=== PATIENT | female | born 1960 | race Caucasian/White ===

== ENCOUNTER 2019-04-05 11:46 | Emergency (ER) | payer MEDICARE, MEDICAID ==
[~2019-04-05] VITALS: Ht 170.2 cm; Wt 100.0 kg
[~2019-04-05 11:46] MED LIST: ALBU6.7H9; ATENOLOL; METOPROLOL; SINGULAIR; [UNRECOGNIZED DRUG - OTHER]
[2019-04-05 11:54] VITALS: BP 190/90
== END 2019-04-05 21:32 | disposition left against medical advice (07) ==
LOC: ER 12:12
DX: R07.89 Other chest pain (principal); Z53.21 Procedure and treatment not carried out due to patient leaving prior to being seen by health care provider

== ENCOUNTER 2020-02-21 18:31 | Emergency (ER) | payer MEDICARE, MEDICAID ==
[~2020-02-21] VITALS: Ht 160 cm; Wt 91.0 kg
[2020-02-21] MEDS ORDERED: BUDE6HFA IH (18:41)
[2020-02-21] MEDS ORDERED: CONCOR (18:41)
[2020-02-21 20:36] LABS: BASOPHILS % 0.8 % (0.0-2.0); EOSINOPHILS % 2.9 % (0.0-5.0); HEMATOCRIT. 42.2 % (36.0-48.0); HEMOGLOBIN. 13.9 g/dL (12.0-16.0); LYMPHOCYTES % 30.7 % (20.0-50.0); MEAN CORPUSCULAR HEMOGLOBIN 25.9 pg (28.0-32.0); MEAN CORPUSCULAR VOLUME 78.7 fL (81.0-99.0); MEAN PLATELET VOLUME 10.6 fl (7.4-10.4); MONOCYTES % 9.1 % (2.0-8.0); NEUTROPHILS % 56.5 % (40.0-76.0); PLATELET 212 x1000/uL (130-400); RED BLOOD CELL COUNT 5.37 mill/uL (4.2-5.4); RED CELL DISTRIBUTION WIDTH 14.2 % (11.6-14.6)
[2020-02-21 20:41] LABS: CHLORIDE 98 mEq/L (98-107)
[2020-02-21 23:52] VITALS: BP 145/90
== END 2020-02-21 23:57 | disposition home or self-care (01) ==
LOC: ER 18:31
DX: I10 Essential (primary) hypertension (principal); R00.2 Palpitations; J45.909 Unspecified asthma, uncomplicated; Z88.8 Allergy status to other drugs, medicaments and biological substances; Z91.012 Allergy to eggs; Z91.018 Allergy to other foods
CPT/HCPCS: 36415; 71045; 80053; 84484; 85025; 99284

== ENCOUNTER 2021-05-02 18:13 | Emergency (ER) | payer MEDICARE, MEDICAID ==
[~2021-05-02] VITALS: Ht 165.1 cm; Wt 60.0 kg
[~2021-05-02 18:13] MED LIST changes: -ALBU6.7H9; -ATENOLOL; +ATOR20TA65 PO; +BUDE6.9H INH; +LOSA50TA41 PO; +METF-873 PO; +METO-396 PO; -METOPROLOL; +PANT40TA51 PO; +QUET50TA PO; -SINGULAIR; -[UNRECOGNIZED DRUG - OTHER]
[2021-05-02 20:00] VITALS: BP 160/92
[2021-05-02] MEDS ORDERED: KETOROLAC 15MG/ML VIAL IV ONE (20:45)
[2021-05-02] MEDS ORDERED: DIAZEPAM 5 MG/ML 2ML CPJ IM ONE (20:45)
== END 2021-05-02 22:42 | disposition home or self-care (01) ==
LOC: ER 18:13
DX: R10.32 Left lower quadrant pain (principal); F41.9 Anxiety disorder, unspecified; I10 Essential (primary) hypertension; E11.9 Type 2 diabetes mellitus without complications; I69.354 Hemiplegia and hemiparesis following cerebral infarction affecting left non-dominant side
CPT/HCPCS: 99283

== ENCOUNTER 2021-06-11 19:35 | Emergency (ER) | payer MEDICARE, MEDICAID ==
[~2021-06-11] VITALS: Ht 157.5 cm; Wt 77.0 kg
[2021-06-11 20:15] VITALS: BP 168/92
[2021-06-11 20:45] LABS: BASOPHILS % 0.5 % (0.0-2.0); EOSINOPHILS % 1.6 % (0.0-5.0); HEMATOCRIT. 40.8 % (36.0-48.0); HEMOGLOBIN. 13.5 g/dL (12.0-16.0); LYMPHOCYTES % 27.1 % (20.0-50.0); MEAN CORPUSCULAR HEMOGLOBIN 25.9 pg (28.0-32.0); MEAN PLATELET VOLUME 9.5 fl (7.4-10.4); MONOCYTES % 8.8 % (2.0-8.0); PLATELET 252 x1000/uL (130-400); RED BLOOD CELL COUNT 5.22 mill/uL (4.2-5.4); RED CELL DISTRIBUTION WIDTH 13.6 % (11.6-14.6)
[2021-06-11 20:52] LABS: CHLORIDE 95 mEq/L (98-107)
[2021-06-11] MEDS ORDERED: SODIUM CHLORIDE 0.9% 250 ML IV NR (21:15)
[2021-06-11] MEDS ORDERED: LORAZEPAM 0.5MG TABLET PO ONE (22:15)
== END 2021-06-11 22:32 | disposition home or self-care (01) ==
LOC: ER 19:35
DX: R51.9 Headache, unspecified (principal); E87.1 Hypo-osmolality and hyponatremia; I10 Essential (primary) hypertension; H40.9 Unspecified glaucoma; I69.354 Hemiplegia and hemiparesis following cerebral infarction affecting left non-dominant side; I69.398 Other sequelae of cerebral infarction; G93.89 Other specified disorders of brain; E11.9 Type 2 diabetes mellitus without complications; Z91.012 Allergy to eggs; Z88.8 Allergy status to other drugs, medicaments and biological substances; Z91.02 Food additives allergy status; Z91.014 Allergy to mammalian meats; Z91.013 Allergy to seafood; Z79.84 Long term (current) use of oral hypoglycemic drugs; Z79.899 Other long term (current) drug therapy
CPT/HCPCS: 36415; 71045; 80053; 84484; 85025; 93005; 99285